=== PATIENT | female | born 1995 | race Caucasian/White ===

== ENCOUNTER 2016-10-27 19:33 | Emergency (ER) | payer MEDICAID ==
[~2016-10-27 19:33] MED LIST: COLACE100 MG PO; MAC100 PO; NORCO1 TA1 PO
[2016-10-27 20:33] VITALS: BP 120/70
== END 2016-10-27 20:33 | disposition home or self-care (01) ==
LOC: ED 19:33
DX: R19.7 Diarrhea, unspecified (principal); R11.10 Vomiting, unspecified
CPT/HCPCS: J1885

== ENCOUNTER 2019-02-01 13:05 | Emergency (ER) | payer MEDICAID ==
[~2019-02-01] VITALS: Ht 154.9 cm; Wt 72.6 kg
[2019-02-01 13:10] VITALS: BP 125/70; Ht 154.9 cm; Wt 72.6 kg
== END 2019-02-01 13:42 | disposition home or self-care (01) ==
LOC: ED 13:05
DX: S39.012A Strain of muscle, fascia and tendon of lower back, initial encounter (principal); J45.909 Unspecified asthma, uncomplicated; V43.52XA Car driver injured in collision with other type car in traffic accident, initial encounter; Y93.I9 Activity, other involving external motion; Y92.488 Other paved roadways as the place of occurrence of the external cause; Y99.8 Other external cause status

== ENCOUNTER 2019-07-27 10:42 | Emergency (ER) | payer MEDICAID ==
[~2019-07-27] VITALS: Ht 154.9 cm; Wt 68.5 kg
[2019-07-27 12:24] VITALS: Ht 154.9 cm; Wt 68.5 kg
[2019-07-27 14:08] VITALS: BP 111/60
== END 2019-07-27 14:08 | disposition home or self-care (01) ==
LOC: ED 10:42
DX: J10.1 Influenza due to other identified influenza virus with other respiratory manifestations (principal); J45.909 Unspecified asthma, uncomplicated; N83.209 Unspecified ovarian cyst, unspecified side
CPT/HCPCS: 87804; Q0162

== ENCOUNTER 2019-11-05 19:57 | Emergency (ER) | payer OTHER ==
[~2019-11-05] VITALS: Ht 154.9 cm; Wt 68.9 kg
[2019-11-05 20:09] VITALS: BP 124/70; Ht 154.9 cm; Wt 68.9 kg
== END 2019-11-05 22:43 | disposition home or self-care (01) ==
LOC: ED 19:57
DX: R07.89 Other chest pain (principal); J45.909 Unspecified asthma, uncomplicated; V49.9XXA Car occupant (driver) (passenger) injured in unspecified traffic accident, initial encounter; Y93.89 Activity, other specified; Y92.413 State road as the place of occurrence of the external cause; Y99.8 Other external cause status

== ENCOUNTER 2020-01-14 17:05 | Emergency (ER) | payer OTHER ==
[~2020-01-14] VITALS: Ht 154.9 cm; Wt 70.3 kg
[2020-01-14 17:09] VITALS: Ht 154.9 cm; Wt 70.3 kg
[2020-01-14 18:07] LABS: BASOPHIL % 0.6 % (0-2); PLATELET COUNT 263 x10^3mcL (130-400); RED CELL DISTRIBUTION WIDTH 13.4 % (11.5-14.5)
[2020-01-14 18:13] LABS: CALCIUM 8.6 mg/dL (8.5-10.1); CARBON DIOXIDE 29.9 mmol/L (21-32); CHLORIDE SERUM 103 mmol/L (98-107); CREATININE SERUM 0.8 mg/dL (0.6-1.0); GFR1 > 60 mL/min; GLUCOSE SERUM 80 mg/dL (74-106); POTASSIUM SERUM 3.5 mmol/L (3.5-5.1); SODIUM SERUM 140 mmol/L (136-145)
[2020-01-14 18:18] LABS: ALBUMIN 4.2 g/dL (3.4-5.0); ALKALINE PHOSPHATASE 74 U/L (46-116); ALT/SGPT 23 U/L (14-59); AST/SGOT 15 U/L (15-37); BILIRUBIN TOTAL 0.3 mg/dL (0.20-1.00); LIPASE 172 IU/L (73-393); TOTAL PROTEIN, SERUM 7.8 g/dL (6.4-8.2)
[2020-01-14 20:06] VITALS: BP 112/77
== END 2020-01-14 20:06 | disposition home or self-care (01) ==
LOC: ED 17:05
PROVIDERS: Emergency Medicine
DX: R07.89 Other chest pain (principal); M54.6 Pain in thoracic spine; R35.0 Frequency of micturition; J45.909 Unspecified asthma, uncomplicated; R10.812 Left upper quadrant abdominal tenderness
CPT/HCPCS: J0696; Q0092

== ENCOUNTER 2020-08-13 13:22 | Emergency (ER) | payer OTHER, SELFPAY ==
[~2020-08-13] VITALS: Ht 154.9 cm; Wt 70.3 kg
[2020-08-13 14:11] VITALS: BP 110/66; Ht 154.9 cm; Wt 70.3 kg
== END 2020-08-13 15:21 | disposition home or self-care (01) ==
LOC: ED 13:22
DX: N39.0 Urinary tract infection, site not specified (principal); M79.10 Myalgia, unspecified site; J45.909 Unspecified asthma, uncomplicated; Z20.828 Contact with and (suspected) exposure to other viral communicable diseases
CPT/HCPCS: U0003